=== PATIENT | female | born 1950 | race Caucasian/White ===

== ENCOUNTER 2022-11-11 11:48 | Day surgery (SDC) | payer OTHER ==
[~2022-11-11] VITALS: Ht 152.4 cm; Wt 61.2 kg
[2022-11-11] MEDS ORDERED: fentaNYL citrate 0.05 MG/ML VIAL ONE ×2 (12:59→13:02)
[2022-11-11] MEDS ORDERED: MIDAZOLAM 5 MG/5 ML VIAL ONE (13:00)
[2022-11-11] MEDS ORDERED: LIDOCAINE 2% 100 MG/5 ML UJET TP ONE (13:01)
[2022-11-11] MEDS ORDERED: diphenhydrAMINE 50 MG/ML VIAL ONE (13:03)
[2022-11-11] MEDS ORDERED: fentaNYL citrate 0.05 MG/ML VIAL IVP ONE (13:55)
[2022-11-11] MEDS ORDERED: MIDAZOLAM 5 MG/5 ML VIAL IV ONE (13:55)
== END 2022-11-11 14:24 | disposition home or self-care (01) ==
LOC: MOR 11:48 → MMU 11:49 → MOR 14:24
PROVIDERS: ATTEND Internal Medicine Gastroenterology
DX: R63.4 Abnormal weight loss (principal); K57.30 Diverticulosis of large intestine without perforation or abscess without bleeding; K21.9 Gastro-esophageal reflux disease without esophagitis; Z86.010 Personal history of colon polyps; Z20.822 Contact with and (suspected) exposure to COVID-19; Z79.899 Other long term (current) drug therapy
CPT/HCPCS: 45380; 87426; 88305; J2250; J3010; J1200